=== PATIENT | female | born 1955 | race African-American/Black ===

== ENCOUNTER 2017-08-29 10:30 | Emergency (ER) | payer MEDICAID, OTHER ==
[~2017-08-29] VITALS: Ht 172.7 cm; Wt 81.6 kg
[~2017-08-29 10:30] MED LIST: CIPROFLOXACIN500 M2 ORAL
[2017-08-29 10:45] VITALS: BP 160/90
[2017-08-29] MEDS ORDERED: BACITRACIN15 GM TOPIC (11:13)
[2017-08-29] MEDS ORDERED: KEFLEX500 MG ORAL (11:13)
[2017-08-29] MEDS ORDERED: TYLENOL EXTRA500 MG ORAL (11:13)
[2017-08-29 11:20] VITALS: BP 160/90
--- NOTE | 2017-08-30 07:28 | Emergency Room Report ---
History of Present Illness General Chief Complaint: Skin Rash/Abscess Source: Patient Present Illness HPI 62-year-old female presents ED complaining of pain to the left eyelid x3 days. Patient states there is a swelling to the left lower eyelid. Pain is throbbing , 3/10, nonradiating. Denies any fevers or chills. Denies any discharge. Denies any photophobia or blurry vision. No other aggravating or relieving factors. Denies any other associated symptoms Allergies: Coded Allergies: No Known Allergies (Unverified , 08/29/17) Patient History Past Medical History: none Past Surgical History: none Pertinent Family History: none Social History: Denies: smoking, alcohol use, drug use Now: No Immunizations: UTD Reviewed Nursing Documentation: PMH: Agreed, PSxH: Agreed Nursing Documentation-PMH Past Medical History: No Stated History Hx Hypertension: No - fibroids removal 2013 Review of Systems All Other Systems: negative except mentioned in HPI Physical Exam Vital Signs Date Time Temp Pulse Resp B/P (MAP) Pulse Ox O2 Delivery O2 Flow Rate FiO2 08/29/17 10:42 97.5 78 16 160/90 98 Room Air Sp02 EP Interpretation: reviewed, normal General Appearance: no apparent distress, alert, GCS 15, non-toxic Head: normocephalic Eyes: left eye other - nodular swelling to L lower eyelid, bilateral eye normal inspection, bilateral eye PERRL ENT: hearing grossly normal, normal pharynx, no angioedema, normal voice Neck: normal inspection Respiratory: normal inspection Cardiovascular #1: normal inspection Gastrointestinal: normal inspection Rectal: deferred Genitourinary: no CVA tenderness Musculoskeletal: normal inspection Neurologic: alert, oriented x3, responsive, motor strength/tone normal, sensory intact, speech normal Psychiatric: normal inspection Skin: other - nodular swelling to L lower eyelid Lymphatic: normal inspection Medical Decision Making Diagnostic Impression: Primary Impression: Stye Qualified Codes: H00.015 - Hordeolum externum left lower eyelid ER Course Hospital Course 62-year-old female presents ED complaining of pain and swelling to left eyelid Differential diagnoses include: conjunctivitis, traumatic iritis, foreign body, corneal abrasion Clinical course Patient placed on stretcher. After initial history, physical exam revealed an enderly female no acute distress. There is nodular swelling to left lower eyelid with surroundings erythema and swelling. No ocular involvement We will prescribe antibiotics. Recommend warm compresses Diagnosis - praful Stable and discharged to home with prescription for Rx Keflex. Followup with PMD/Optho. Return to ED if symptoms recur or worsen Last Vital Signs Date Time Temp Pulse Resp B/P (MAP) Pulse Ox O2 Delivery O2 Flow Rate FiO2 08/29/17 11:20 97.5 16 160/90 98 Room Air 08/29/17 10:42 78 Status: improved Disposition: HOME, SELF-CARE Condition: Stable Scripts Acetaminophen* (TYLENOL EXTRA STRENGTH*) 500 Mg Tablet 500 MG ORAL Q8H Y for Prn Headache/Temp > 101, #30 TAB 0 Refills Prov: RUBIO BRYSON M.D. 08/29/17 Bacitracin (Bacitracin) 28.4 Gm Oint...g. 1 APPLIC TOPIC THREE TIMES A DAY, #28.4 GM Prov: RUBIO BRYSON M.D. 08/29/17 Cephalexin* (KEFLEX*) 500 Mg Capsule 500 MG ORAL Q6H, #28 CAP 0 Refills Prov: RUBIO BRYSON M.D. 08/29/17 Referrals: [facility],REFERRING (PCP) Patient Instructions: RUBIO Quiles M.D. Aug 30, 2017 07:28
== END 2017-08-29 11:20 | disposition home or self-care (01) ==
LOC: EMR 11:03
DX: H00.015 Hordeolum externum left lower eyelid (principal)
CPT/HCPCS: 99284

== ENCOUNTER 2019-01-05 15:23 | Emergency (ER) | payer MEDICAID ==
[~2019-01-05] VITALS: Ht 175.3 cm; Wt 81.6 kg
[~2019-01-05 15:23] MED LIST changes: +BACITRACIN15 GM TOPIC; +KEFLEX500 MG ORAL; +TYLENOL EXTRA500 MG ORAL
--- NOTE | 2019-01-05 15:42 | NUR ---
ED Nurse Note: PT WALKED IN TO ER TODAY FROM HOME. AOX4. PT C/O PAINFUL MASS ON LEFT EYE LID X 2 DAYS AGO, PAIN 5/10. PT NOTICED ANOTHER LUMP TO LEFT SIDE OF FACE X YESTERDAY BUT DENIES ANY PAIN IN THAT AREA. PT STATES SHE NOTICED SOME DECREASE IN VISION IN THE LEFT EYE BUT DENIES ANY DISCHARGE OR ITCHING.
[2019-01-05 15:43] VITALS: BP 142/92
[2019-01-05] MEDS ORDERED: CEPHALEXIN500 MG ORAL (16:05)
[2019-01-05] MEDS ORDERED: ERYTHROMYCIN3.5 GM LEFT EYE (16:05)
[2019-01-05] MEDS ORDERED: TYLENOL EXTRA500 MG ORAL (16:05)
--- NOTE | 2019-01-05 16:05 | Emergency Room Report ---
History of Present Illness General Chief Complaint: Eye Problems Source: Patient, Medical Record Present Illness HPI 63-year-old female patient presents the ER complaining of left upper eyelid swelling for the past 2 days. Reports history of similar symptoms in the past. Reports no eye drainage. Denies vision loss. Denies photophobia or phonophobia. Reports also has swollen bump on the left side of her face that is tender to palpation. Denies drainage. Denies fever, chest pain, shortness of breath. Reports previously seen in this ER for similar symptoms and followed up with [facility] who provided her with topical eye antibiotics. Denies other aggravating or relieving factors. Denies wearing contacts. Denies tooth pain. Denies sore throat. Denies pain with eye movement. Denies foreign body. Allergies: Coded Allergies: No Known Allergies (Unverified , 08/29/17) Patient History Past Medical History: see triage record, old chart reviewed Last Menstrual Period: N/A Reviewed Nursing Documentation: PMH: Agreed; PSxH: Agreed Nursing Documentation-PMH Hx Hypertension: No - fibroids removal 2013 Review of Systems All Other Systems: negative except mentioned in HPI Physical Exam Vital Signs Date Time Temp Pulse Resp B/P (MAP) Pulse Ox O2 Delivery O2 Flow Rate FiO2 01/05/19 15:34 98.6 65 18 149/101 95 Room Air Sp02 EP Interpretation: reviewed, normal General Appearance: well appearing, no apparent distress, alert, GCS 15, non- toxic Head: normocephalic, atraumatic Eyes: left eye other - Upper eyelid: Erythema and edema consistent with obvious stye; bilateral eye normal inspection, bilateral eye PERRL, bilateral eye EOMI ENT: hearing grossly normal, normal pharynx, no angioedema, normal voice, TMs + canals normal, uvula midline, moist mucus membranes Neck: full range of motion, no bony tend Respiratory: lungs clear, normal breath sounds, no rhonchi, no respiratory distress, no accessory muscle use, no wheezing, speaking full sentences Cardiovascular #1: regular rate, rhythm, no edema Musculoskeletal: back normal, digits/nails normal, gait/station normal, normal range of motion, non-tender Psychiatric: mood/affect normal Skin: no rash Lymphatic: other - Swollen preauricular lymph node on left side of face, no overlying erythema or edema, no fluctuance Medical Decision Making PA Attestation Dr. Reyes is my supervising Physician whom patient management has been discussed with. Diagnostic Impression: Primary Impression: Stye Additional Impression: Swollen lymph nodes ER Course Pt. presents to the ED c/o left eye swelling and bump on left side of face. Ddx considered but are not limited to stye, chalazion, abscess, cellulitis, conjunctivitis, parotitis, iritis. Vital signs: are WNL, pt. is afebrile ER COURSE: Obvious stye, will provide patient with topical antibiotics due to history of styes. Advised follow-up with primary care provider and discuss referral to ophthalmology. Provide with contact for ophthalmology. Apply warm compresses. Take Tylenol for pain and swelling. Swollen lymph node on left side of face, no overlying erythema or edema, no fluctuance, does not require incision and drainage. Will provide patient with oral antibiotics to treat. ER precautions given. DISCHARGE: At this time pt is stable for d/c to home. Patient is resting comfortably, in no acute distress, nontoxic appearing, talking without difficulty. Patient to take medications as instructed Will provide with patient care instructions and any necessary prescriptions. Care plan and follow-up instructions provided. Patient instructed to follow-up with primary care provider in 3 - 5 days. Patient questions asked and answered. Patient reports understanding and agreement to treatment plan. ER precautions given. Patient instructed to return to ER immediately for any new or worsening of symptoms including but not limited to increasing SOB, persistent fever, chest pain, intractable vomiting. - Please note that this Emergency Department Report was dictated using [employer] technology software, occasionally this can lead to erroneous entry secondary to interpretation by the dictation equipment. Last Vital Signs Date Time Temp Pulse Resp B/P (MAP) Pulse Ox O2 Delivery O2 Flow Rate FiO2 01/05/19 15:43 98.3 64 17 142/92 98 Room Air Status: improved Disposition: HOME, SELF-CARE Condition: Stable Scripts Acetaminophen* (TYLENOL EXTRA STRENGTH*) 500 Mg Tablet 500 MG ORAL Q8H PRN for Prn Headache/Temp > 101, #30 TAB 0 Refills Prov: Hira Bird P.A. 01/05/19 Erythromycin Base (ERYTHROMYCIN*) 3.5 Gm Oint...g. 1 APPLIC LEFT EYE TID, #3.5 GM 0 Refills Prov: Hira Bird P.A. 01/05/19 Cephalexin* (KEFLEX*) 500 Mg Capsule 500 MG ORAL EVERY 12 HOURS, #14 CAP 0 Refills Prov: Hira Bird 01/05/19 Patient Instructions: Alisa, Courtney Additional Instructions: Followup with primary care provider in 3 -5 days. Discussed referral to [facility]. Apply warm compresses. Take Tylenol for pain symptoms. Take medications as directed. Patient questions asked and answered. ER precautions given, patient instructed to return to ER immediately for any new or worsening of symptoms. Hira Bird Jan 05, 2019 16:05
[2019-01-05 16:16] VITALS: BP 140/90
--- NOTE | 2019-01-05 16:16 | NUR ---
ED Nurse Note: PT SITTING PEACEFULLY IN BED IN NAD. AOX4. PRESCRIPTIONS AND DISCHARGE PAPERWORK EXPLAINED TO PT. PT VERBALIZES UNDERSTANDING AND ALL QUESTIONS ANSWERED. PRESCRIPTIONS AND DISCHARGE PAPERWORK GIVEN TO PT AND ID WRISTBAND REMOVED. PT WALKED OUT OF ER WITH STEADY GAIT AND ALL BELONGINGS.
== END 2019-01-05 16:16 | disposition home or self-care (01) ==
LOC: EMR 16:13
DX: H00.014 Hordeolum externum left upper eyelid (principal); R59.0 Localized enlarged lymph nodes
CPT/HCPCS: 99282